=== PATIENT | female | born 1945 | race Caucasian/White ===

== ENCOUNTER 2018-02-14 01:36 | Inpatient (IN) | payer OTHER ==
[~2018-02-14] VITALS: Ht 160 cm; Wt 75.3 kg
[~2018-02-14 01:36] MED LIST: ASPIRIN EC81 M1 PO; ATACAND16 M1 PO; MULTIVITAMINS1 EAC9 PO; TOPROL XL50 M2 PO
--- NOTE | 2018-02-14 09:14 | Admission Core Measures ---
Acute Coronary Syndrome (CM) ACS Core Measures Acute Coronary Syndrome Diagnosis No Comment Congestive Heart Failure (NEW) CHF Core Measures Congestive Heart Failure Diagnosis No Cerebrovascular Accident (NEW) CVA Core Measures CVA/TIA Diagnosis No Venous Thromboembolism VTE Core Nusrat (View Protocol) VTE Risk Factors Surgery No Mechanical VTE Prophylaxis d/t N/A MechProphylax Ordered No VTE Pharm Prophylaxis d/t NA PharmProphylax ordered Problem List As ranked by this Provider includes Assessment & Plan 1. Primary osteoarthritis of left hip HOME MEDS Home Med List Candesartan Cilexetil (Atacand) 16 MG TABLET 1 TAB PO QAM HTN (Reported) Metoprolol Succ XL (Toprol XL) 50 MG TAB.ER.24H 1 TAB PO QPM HTN (Reported) Multiple Vitamin (Multivitamins) 1 EACH TABLET 1 TAB PO DAILY SUPPLEMENT ( Reported)
--- NOTE | 2018-02-14 09:17 | Patient Discharge Instructions ---
Discharge Instructions General Discharge Information You were seen/treated for: LEFT HIP OSTEOARTHRITIS You had these procedures: LEFT TOTAL HIP REPLACEMENT Watch for these problems: FEVER OVER 101 DRAINAGE FROM WOUND UNABLE TO BEAR WEIGHT ON LEFT HIP Call Surgeon to remove: FOLLOW-UP APPOINTMENT IN 6 WEEKS Do not soak the wound: Yes No bath, but you may shower: Yes Other wound care: DIALY DRY DRESSING CHANGE Special Instructions: NO DRIVING WHILE TAKING PAIN MEDICATIONS Diet Continue normal diet: Yes Activity Activity Self Limited: Yes Activity Limited to: Weight bear as tolerated Acute Coronary Syndrome Inclusion Criteria At DC or during hospital stay patient has or had the following: ACS DIAGNOSIS No Discharge Core Measures Meds if any: Prescribed or Continued at Discharge Meds if any: NOT Prescribed or Continued at Discharge Congestive Heart Failure Inclusion Criteria At DC or during hospital stay patient has or had the following: CHF DIAGNOSIS No Discharge Core Measures Meds if any: Prescribed or Continued at Discharge Meds if any: NOT Prescribed or Continued at Discharge Cerebrovascular accident Inclusion Criteria At DC or during hospital stay patient has or had the following: CVA/TIA Diagnosis No Discharge Core Measures Meds if any: Prescribed or Continued at Discharge Meds if any: NOT Prescribed or Continued at Discharge Venous thromboembolism Inclusion Criteria VTE Diagnosis No VTE Type NONE VTE Confirmed by (Test) NONE Discharge Core Measures - Per Current guidelines, there needs to be overlap - treatment for the first 5 days of Warfarin therapy. - If discharged on Warfarin prior to 5 days of - overlap therapy, the patient will need to be - assessed for post discharge needs including - *Post discharge parental anticoagulation - *Warfarin and/or parental anticoagulation education - *Follow up date to check INR post discharge At least 5 days overlap therapy as Inpatient Yes Meds if any: Prescribed or Continued at Discharge Overlap Therapy No Note: Overlap Therapy is Warfarin and Anticoagulant Meds if any: NOT Prescribed or Continued at Discharge
--- NOTE | 2018-02-14 09:33 | Surgical Discharge Summary ---
Visit Information Visit Dates Admission Date: 02/14/18 Discharge Date: 02/16/18 History of Present Illness Chief Complaint: LEFT HIP PAIN Medical History Cardiovascular: hypertension Surgical History Pertinent Surgical History: hip replacement (LEFT) Review of Systems: REFER TO H&P Hospital Course Course Attending Physician: Naveed Fuchs MD Primary Care Physician: Pam BLOUNT,[facility] Course: PT PRESENTED TO [facility] FOR ELECTIVE LEFT TOTAL HIP ARTHROPLASTY. POSTOPERATIVELY SHE TOLERATED PO INTAKE, VOIDED SPONTANEOUSLY, PAIN WAS MANAGED WITH ORAL MEDICATIONS, AMBULATED WITH PHYSICAL THERAPY AND WAS CLEARED FOR DISCHARGE TO REHAB. Allergies: Coded Allergies: Sulfa (Sulfonamide Antibiotics) (Intermediate, RASH 08/10/17) Penicillins (CHILDHOOD DOES NOT KNOW REACTION 02/12/18) amoxicillin (STOMACH PAIN, VOMITING AND DIARRHEA 02/12/18) erythromycin base (VOMITING, STOMACH PAIN AND DIARRHEA 02/12/18) Significant Procedures: LEFT TOTAL HIP ARTHROPLASTY Disposition Summary Disposition Principal Diagnosis: LEFT HIP OA Additional Diagnosis: SP LEFT NINFA Discharge Disposition: REHAB FACILITY Discharge Instructions General Discharge Information Code Status: Full Code Patient's Diet: RGULAR Patient's Activity: WBAT WITH RN Follow-Up Instructions/Appts: FU WITH DR FUCHS IN 6 WEEKS Medications at Discharge Discharge Medications: Continue taking these medications: Metoprolol Succ XL (Toprol XL) 50 MG TAB.ER.24H 1 Tablet ORAL Every night Candesartan Cilexetil (Atacand) 16 MG TABLET 1 Tablet ORAL Every Morning Multiple Vitamin (Multivitamins) 1 EACH TABLET 1 Tablet ORAL DAILY Start taking the following new medications: Aspirin (Ecotrin*) 325 MG TABLET.DR 1 Tablet ORAL TWICE DAILY Qty = 60 No Refills Docusate Sodium (Colace) 100 MG CAPSULE 1 Capsule ORAL TWICE DAILY Qty = 14 No Refills Instructions: STOP TAKING IF YOU DEVELOP LOOSE STOOL/DIARRHEA Hydromorphone HCl (Dilaudid) 2 MG TABLET 1-2 Tablet ORAL EVERY 4-6 HOURS NEEDED as needed for PAIN Qty = 36 No Refills Polyethylene Glycol 3350 (Miralax) 17 GRAM POWD.PACK 1 Packet ORAL DAILY Days = 7 No Refills Instructions: dissolve in water. STOP TAKING IF YOU DEVELOP LOOSE STOOL/DIARRHEA Omeprazole Magnesium (Prilosec Otc) 20 MG TABLET. 1 Tablet ORAL DAILY Qty = 30 No Refills Copies To: Naveed Fuchs MD
[2018-02-14] MEDS ORDERED: COLACE100 M1 PO (10:05)
[2018-02-14] MEDS ORDERED: PRILOSEC OTC20 M1 PO (10:05)
[2018-02-14] MEDS ORDERED: MIRALAX17 G1 PO (10:05)
[2018-02-14] MEDS ORDERED: DILAUDID2 M1 PO (10:05)
[2018-02-14] MEDS ORDERED: ASPIRIN EC325 M2 PO (10:05)
--- NOTE | 2018-02-14 10:35 | RADIOLOGY REPORT ---
EXAMINATION: XR HIP, LEFT CLINICAL INFORMATION: Status post hip arthroplasty COMPARISON: None TECHNIQUE: Two views of the left hip. FINDINGS: The components of the left total hip arthroplasty are in their expected positions. The femoral head prosthesis is well centered within the acetabular cup. No acute periprosthetic fracture. There is no endosteal scalloping around the tip of the femoral stem. Postoperative soft tissue swelling and soft tissue emphysema of the left hip. IMPRESSION: The components of the left total hip arthroplasty exhibit satisfactory position and alignment. No acute periprosthetic fracture.
[2018-02-14 11:00] VITALS: BP 116/78
[2018-02-14 13:00] VITALS: BP 100/40
--- NOTE | 2018-02-14 14:19 | PN- Orthopedic ---
Subjective Subjective: POST-OP NOTE Out of bed to chair. Slight dizziness earlier. Reports pain controlled. No shortness of breath. No chest pains. She has 26 stairs to accomplish at home, and lives alone, so she is anticipating the need for short term rehab. She recently stayed @ the [facility] following surgery on her thigh several months ago for a large benign lipoma of her thigh. Objective Vital Signs and I&Os Vital Signs Date Time Temp Pulse Resp B/P B/P Pulse O2 O2 Flow FiO2 Mean Ox Delivery Rate 02/14 1300 97.4 67 20 100/40 93 02/14 1202 Room Air Room Air 02/14 1100 97.9 70 20 116/78 94 Room Air Intake & Output 02/14 1600 02/14 0800 02/14 0000 02/13 1600 02/13 0800 02/13 0000 Intake Total Output Total Balance Patient 166 lb Weight Weight Chair scale Measurement Method Physical Exam: General - alert & oriented x 3. out of bed to chair. no acute distress. Lungs - clear bilaterally. no w/r/r. Cardiac - s1s2. reg. Abdomen - soft. nontender. Extremities - warm bilaterally. no c/c/e. left thigh dressing c/d/i. no drains. no hematoma. calves soft and nontender b/l. athrombics in place. nvi. Current Medications: Current Medications Sig/Jim Start time Last Medication Dose Route Stop Time Status Admin Acetaminophen 1,000 MG Q6 02/14 1200 AC 02/14 IV 02/15 0601 1240 Acetaminophen 0 .STK-MED ONE 02/14 0705 DC PO Acetaminophen 975 MG ONCE 02/14 0000 DC PO 02/14 2359 Aspirin 325 MG BID 02/14 1000 AC PO Cefazolin Sodium 2 GM IQ8 02/14 1600 AC N/A 1 UNIT IV 02/15 0029 Cefazolin Sodium 2,000 MG ONCE 02/14 0000 DC IV 02/14 2359 Dextrose/Sodium 1,000 ML .[id number] 02/14 1130 AC 02/14 Chloride IV 1240 Docusate Sodium 100 MG DAILY NEEDED PRN 02/14 1130 AC PO Hydromorphone HCl 2 MG Q4P PRN 02/14 1130 AC PO Hydromorphone HCl 4 MG Q4P PRN 02/14 1130 AC PO Ketorolac 15 MG Q8 PRN 02/14 1000 AC Tromethamine IM Losartan Potassium 50 MG DAILY 02/15 1000 AC PO Losartan Potassium 50 MG DAILY 02/14 1000 DC PO Metoprolol Succinate 50 MG QPM 02/14 2200 DC PO Metoprolol Succinate 50 MG QPM 02/14 2200 AC PO Morphine Sulfate 2 MG Q2P PRN 02/14 1130 AC IV Omeprazole 20 MG DAILY AC 02/15 0700 AC PO Omeprazole 40 MG DAILY AC 02/14 0959 DC PO Ondansetron HCl 4 MG Q6P PRN 02/14 1130 AC IV Oxycodone HCl 0 .STK-MED ONE 02/14 0705 DC PO Oxycodone HCl 10 MG ONCE 02/14 0000 DC PO 02/14 2359 Polyethylene Glycol 17 GM DAILY NEEDED PRN 02/14 1130 AC PO Promethazine HCl 12.5 MG Q6P PRN 02/14 1130 AC IV 02/21 0959 Assessment/Plan Assessment/Plan This 72 year old female with hx htn is POD#0 s/p left total hip replacement for primary osteoarthritis advance diet as tolerated. continue iv fluids for now until drinking better pain medication as ordered elana-operative ancef x 2 doses asa bid - dvt ppx PT eval bowel regime ordered f/u am labs dressing change POD#2 home meds ordered likely str planning will d/w Core Measures Venous Thromboembolism VTE Risk Factors Surgery No Mechanical VTE Prophylaxis d/t N/A MechProphylax Ordered No VTE Pharm Prophylaxis d/t NA PharmProphylax ordered
--- NOTE | 2018-02-14 15:15 | Operative Report ---
Operative/Inv Procedure Report Surgery Date: 02/14/18 Name of Procedure: Left total hip replacement Pre-Operative Diagnosis: Primary left hip DJD Post-Operative Diagnosis: Same Estimated Blood Loss: 250 Surgeon/Post Office Manager: Vandana BLOUNT,Naveed Downey Anesthesia: block Operative/Procedure Note Note: Description of Procedure: The patient was taken to the operating room and positively identified. After induction of spinal anesthesia and administration of appropriate pre-operative antibiotics, the patient was positioned supine on the operating room table and all bony prominences were well padded. After performing a surgical timeout, the left lower extremity was prepped and draped in the usual sterile fashion. A direct anterior approach was made to the left hip. The incision was carried sharply through superficial soft tissues to the level of the fascia. Meticulous hemostasis was maintained with Bovie electocautery. The fascia over the tensor fascia radha muscle was opened sharply and the interval between the TFL and the sartorius was entered bluntly taking care to stay lateral to the lateral femoral cutaneous nerve. Retractors were placed around the femoral neck and the pericapsular fat was identified. The ascending branches of the lateral femoral circumflex vessels were identified and carefully coagulated. The pericapsular fat and anterior capsule were then resected. A napkin ring osteotomy was performed and the femoral head was removed without difficulty. Attention was then turned to the acetabulum. After appropriate placement of retractors, the acetabulum was exposed. Soft tissue was cleaned from the acetabular margin and notch. Overhanging osteophytes were removed and the teardrop was exposed. The acetabulum was then sequentially reamed to accept a 54 mm [place] Tritanium hemispherical solid shell. This was impacted into place in the appropriate position and fitted with a 36 mm Trident X3 zero degree polyethylene insert. Attention was then turned to the femur. After performing the appropriate ligament releases, the proximal femur was exposed. It was then sequentially broached to accept a size #4 [place] Accolade 2 stem. This was trialed for leg length and stability. The trial component was removed and the final component was impacted into place. The trunnion was carefully cleaned and fit with a 36 mm, -2.5 Biolox delta ceramic femoral head. The hip was reduced and put through a full range of motion and found to be stable. The articular space was then irrigated with sterile saline. The periarticular soft tissues were infilitrated with Marcaine. The fascial layer was closed with interrupted #1 vicryl suture and the skin was re-approximated with interrupted 2 -0 vicryl. The skin was closed with a running 3-0 V-Lock suture. Steri-strips and a sterile dressing were applied. The patient was awakened and taken to the recovery room in satisfactory condition.
[2018-02-14 17:00] VITALS: BP 91/58
[2018-02-14 21:00] VITALS: BP 93/59
[2018-02-15 00:47] VITALS: BP 88/60
[2018-02-15 04:06] VITALS: BP 84/52
[2018-02-15 04:43] LABS: ABSOLUTE BASOPHIL COUNT 0 /CUMM (0.0-0.2); ABSOLUTE EOSINOPHIL COUNT 0.1 /CUMM (0.0-0.7); ABSOLUTE GRANULOCYTE CT 5.4 /CUMM (1.4-6.5); ABSOLUTE LYMPH COUNT 1.2 /CUMM (1.2-3.4); ABSOLUTE MONOCYTE COUNT 0.6 /CUMM (0.10-0.60); BASOPHIL % 0.4 % (0.0-2.0); GRANULOCYTE % 74.1 % (42.2-75.2); HEMATOCRIT 30.3 % (37-47); MEAN CORPUSCULAR HGB 29.9 PG (27.0-31.0); MEAN CORPUSCULAR HGB CONC 32.8 G/DL (33.0-37.0); MEAN PLATELET VOLUME 8.1 FL (7.4-10.4); PLATELET COUNT 201 /CUMM (130-400); RBC DISTRIBUTION WIDTH 14.5 % (11.5-14.5); RED BLOOD CELL CT 3.33 /CUMM (4.20-5.40); WHITE BLOOD CELL COUNT 7.3 /CUMM (4.8-10.8)
[2018-02-15 06:49] VITALS: BP 102/64
[2018-02-15 09:00] VITALS: BP 106/60
--- NOTE | 2018-02-15 10:45 | PN- Orthopedic ---
Subjective Subjective: Overnight events noted. Patient no longer dizzy, has had IV fluid bolus with good effect. Is tired. Denies chest pain, shortness of breath and difficulty breathing. Denies nausea and vomitting. Is tolerating pain. Is tolerating po. Anticipates ambulating with PT this am. Objective Vital Signs and I&Os Vital Signs Date Time Temp Pulse Resp B/P B/P Pulse O2 O2 Flow FiO2 Mean Ox Delivery Rate 02/15 0900 97.1 68 20 106/60 96 Room Air 02/15 0839 68 102/60 02/15 0649 98.1 63 20 102/64 98 Room Air 02/15 0406 97.8 67 20 84/52 93 Room Air 02/15 0047 98.0 68 20 88/60 94 Room Air 02/14 2216 70 93/59 02/14 2100 97.7 70 19 93/59 99 Room Air 02/14 1700 97.3 70 19 91/58 93 Room Air 02/14 1300 97.4 67 20 100/40 93 02/14 1202 Room Air Room Air 02/14 1100 97.9 70 20 116/78 94 Room Air Intake & Output 02/15 1600 02/15 0800 02/15 0000 02/14 1600 02/14 0800 02/14 0000 Intake Total 500 1840 1040 400 Output Total 1300 300 800 Balance 500 540 740 -400 Intake, IV 500 1600 800 300 Intake, Oral 240 240 100 Number 0 0 Bowel Movements Output, Urine 1300 300 800 Patient 166 lb Weight Weight Chair scale Measurement Method Physical Exam: General: Alert and oriented x3, no acute distress Cardiac: RRR, s1s2 Pulm: C TA bialterally, non-labored respiratory effort Extremities: Moves all extremities, distal sensation intact. Skin warm and well perfused. No peripheral edema. Bilateral calves soft and non-tender Surgical site: Left hip. Dressing dry and intact. Thigh compartment soft Assessment/Plan Assessment/Plan This is a 72 year old female, POD 1, s/p L THR. Hypotensive episode overngith. Has had fluid bolus with good effect. Continue IV fludis for now, will reassess this afternoon OOB, WBAT, Assist x2 Diet as tolerated Limit narcotic use as much as possible ASA 325 bid for dvt ppx Follow up am labs Will discuss POC with Dr. Ross Core Measures Venous Thromboembolism VTE Risk Factors Surgery No Mechanical VTE Prophylaxis d/t N/A MechProphylax Ordered No VTE Pharm Prophylaxis d/t NA PharmProphylax ordered
[2018-02-15 14:32] VITALS: BP 110/62
[2018-02-15 21:44] VITALS: BP 100/50
[2018-02-16 06:21] VITALS: BP 120/72
--- NOTE | 2018-02-16 07:38 | PN- Orthopedic ---
Subjective Subjective: pod#2 s/p left max no major issues overnight deneis cp, sob, no n+v iwth diet no c/o dizziness today bp improved ambulating well with pt tolerating diet Objective Vital Signs and I&Os Vital Signs Date Time Temp Pulse Resp B/P B/P Pulse O2 O2 Flow FiO2 Mean Ox Delivery Rate 02/16 0621 99.3 94 20 120/72 93 Room Air 02/15 2144 99.3 86 100/50 93 Room Air 02/15 2102 86 100/50 02/15 1432 97.8 84 20 110/62 93 Room Air 02/15 1138 Room Air Room Air 02/15 0900 97.1 68 20 106/60 96 Room Air 02/15 0839 68 102/60 Intake & Output 02/16 0800 02/16 0000 02/15 1600 02/15 0800 02/15 0000 02/14 1600 Intake Total 998 486 7006 1840 1040 400 Output Total 400 903 212 7413 300 800 Balance -284 237 3483 540 740 -400 Intake, IV 1300 1600 800 300 Intake, Oral 240 650 960 240 240 100 Number 0 0 0 Bowel Movements Output, Urine 400 294 625 2961 300 800 Patient 166 lb Weight Weight Chair scale Measurement Method Physical Exam: cv: rrr lungs: clear abd: soft, +bs ext: drsg changed, wound c/d/i no calf tenderness bilat distal cms intact Assessment/Plan Assessment/Plan ortho stable plan cont oob with pt plan for snf in am Core Measures Venous Thromboembolism VTE Risk Factors Surgery No Mechanical VTE Prophylaxis d/t N/A MechProphylax Ordered No VTE Pharm Prophylaxis d/t NA PharmProphylax ordered
[2018-02-16 11:50] VITALS: BP 122/70
== END 2018-02-16 13:43 | DRG 470 ==
LOC: SDA 01:36 → ENRESERV 10:12 → ENTRNSPT 10:45 → EDTRNSPT 10:49 → EDTRNSPTSTS 10:49 → EDTRNSPT 10:51 → CMPTRNSPT 11:04 → 2NB 11:05 → ENPENDDIS 02-16 10:15 → 2NB 02-16 13:43
PROVIDERS: Physician Assistant Surgical
PROC: 0SRB04Z Replacement of Left Hip Joint with Ceramic on Polyethylene Synthetic Substitute, Open Approach (ICD-10-PCS; principal; 2018-02-14)
DX: M16.12 Unilateral primary osteoarthritis, left hip (principal); I95.9 Hypotension, unspecified; I47.1 Supraventricular tachycardia; I10 Essential (primary) hypertension; R12 Heartburn; K44.9 Diaphragmatic hernia without obstruction or gangrene; Z88.1 Allergy status to other antibiotic agents; Z88.0 Allergy status to penicillin; Z86.73 Personal history of transient ischemic attack (TIA), and cerebral infarction without residual deficits; Z88.2 Allergy status to sulfonamides
CPT/HCPCS: 2NBSP; 36592; 73502-LT; 82436; 88304; 97110-GO; 97116-GO; 97161-GP; 97530-GO; C9399; J0131; J0690; J0735; J2550; J3490; J7042